=== PATIENT | female | born 1940 | race American Indian/Alaskan Native ===

== ENCOUNTER 2018-12-27 14:10 | Emergency (ER) | payer MEDICAID, MEDICARE ==
--- NOTE | 2018-12-27 14:41 | Emergency Department Report ---
Blank Doc - Documentation Documentation: This is a 78-year-old female that presents with dry cough. Patient stated seen her PCP and was given Prednisone x5 days. Stated was taking Lisinopril and stopped it last month. Stated has acid reflex as well. Exam: normal exam. no facial swelling. no rash. No angioedema. This initial assessment diagnostic orders/clinical plan/treatment(s) is/are subject to change based on patient's health status, clinical progression and re- assessment by fellow clinical providers in the ED. Further treatment and workup at subsequent clinical providers discretion. Patient/guardians urged not to elope from ED s their condition may be serious if not clinically assessed and managed. Initial orders include: 1-Patient sent to [facility] for further evaluation and treatment 2- CXR
[2018-12-27 14:43] VITALS: BP 149/68
--- NOTE | 2018-12-27 15:16 | XRay Report ---
ROUTINE CHEST, TWO VIEWS: HISTORY: chest pain. The trachea, heart, mediastinal contour, lung olguin and bony thorax are unremarkable. Linear scarring in the right upper lobe is noted. IMPRESSION: No acute cardiopulmonary process.
--- NOTE | 2018-12-27 18:01 | Emergency Department Report ---
Minor Respiratory - HPI Chief Complaint: Allergic Reaction Stated Complaint: LUPUS/COUGHING Time Seen by Provider: 12/27/18 14:38 Duration: 3 weeks Severity: mild Minor Respiratory: Yes Able to Tolerate Fluids, Yes Cough, No Rhinorrhea, No Sore Throat, No Ear Pain, No Sick Contacts, No Hemoptysis, No Chest Pain, No Shortness of Breath, No Fever Other History: This is a 78-year-old -[place] female presents with a cough for the past 3 weeks. Past medical history of diabetes, depression, hyperlipidemia, asthma, GERD, hypertension, lupus, and glaucoma. Patient states initially she was taken off of lisinopril for cough side effects and started on losartan. She is currently seeing a care provider Dr. Jocelynn Verdugo. Patient states she was told her cough is related to GERD, asthma, and acid reflux. She thought symptoms would improve after starting losartan but continues to cough. Patient states cough is worse after eating. She also complains of a burning sensation in stomach. Patient states she has taken Zantac and Nexium with no improvement of symptoms. She is requesting better medication and a new primary care provider. She states her insurance company provided her current primary care provider. She denies fever, chest pain, shortness of breath, wheeze then, nausea or vomiting. ED Review of Systems ROS: Stated complaint: LUPUS/COUGHING Other details as noted in HPI Constitutional: denies: chills, fever Respiratory: cough. denies: shortness of breath, wheezing Cardiovascular: denies: chest pain, palpitations Endocrine: no symptoms reported Gastrointestinal: denies: abdominal pain, nausea, diarrhea Neurological: denies: headache, weakness, paresthesias Psychiatric: denies: anxiety, depression ED Past Medical Hx - Past Medical History Hx Hypertension: Yes Hx Diabetes: Yes Hx GERD: Yes Hx Asthma: Yes Additional medical history: Lupus, hiatal hernia - Surgical History Hx Appendectomy: Yes Additional Surgical History: spinal fusion, cataract, tonsillectomy - Social History Smoking Status: Never Smoker Substance Use Type: None - Medications Home Medications: Home Medications Medication Instructions Recorded Confirmed Last Taken Type Pantoprazole [Protonix TAB] 40 mg PO QDAY #30 tablet 12/27/18 Unknown Rx Minor Respiratory Exam - Exam General: Vital signs noted. No distress. Alert and acting appropriately. HEENT: Yes Moist Mucous Membranes, No Pharyngeal Erythema, No Pharyngeal Exudates, No Rhinorrhea, No Conjuctival Injection, No Frontal Tenderness, No Maxillary Tenderness Ear: Neither TM Bulge, Neither TM Erythema, Neither EAC Pain, Neither EAC Discharge Neck: Yes Supple, No Adenopathy Lungs: Yes Good Air Exchange, No Wheezes, No Ronchi, No Stridor, No Cough, No Labored Respirations, No Retractions, No Use of Accessory Muscles, No Other Abnormal Lung Sounds Heart: Yes Regular, No Murmur Abdomen: Yes Normal Bowel Sounds, No Tenderness, No Peritoneal Signs Skin: No Rash, No Edema Neurologic: Alert and oriented, no deficits. Musculoskeletal: Unremarkable. ED Course Vital Signs 12/27/18 14:39 Temperature 97.7 F Pulse Rate 90 Respiratory 16 Rate Blood Pressure 149/68 O2 Sat by Pulse 98 Oximetry ED Medical Decision Making - Radiology Data Radiology results: report reviewed ROUTINE CHEST, TWO VIEWS: HISTORY: chest pain. The trachea, heart, mediastinal contour, lung olguin and bony thorax are unremarkable. Linear scarring in the right upper lobe is noted. IMPRESSION: No acute cardiopulmonary process. - Medical Decision Making This is a 78 y.o. female that presents with a cough for 2-3 weeks. Past medical history of diabetes, depression, hyperlipidemia, asthma, GERD, hypertension, lupus, glaucoma, and osteoporosis. Patient is stable and was examined by me. Vitals stable. Obtained chest x-ray. Chest x-ray dictated by radiologist report reviewed by myself. No acute cardiopulmonary process. Symptoms are most likely related to GERD. Start pantoprazole 40 mg po daily x 30 days. Instructed to continue taking losartan. Discussed plan with patient and agreed to plan. No further questions noted by the patient. Discharged home in stable condition. 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 Critical care attestation.: If time is entered above; I have spent that time in minutes in the direct care of this critically ill patient, excluding procedure time. ED Disposition Clinical Impression: Cough in adult GERD (gastroesophageal reflux disease) Qualifiers: Esophagitis presence: without esophagitis Qualified Code(s): K21.9 - Gastro- esophageal reflux disease without esophagitis Disposition: TO HOME OR SELFCARE Is pt being admited?: No Does the pt Need Aspirin: No Condition: Stable Instructions: Gastroesophageal Reflux Disease (ED) Additional Instructions: Weight reduction and elevation of the head of the bed may be useful. Follow up with gastroenterology and primary care provider in the next week. Prescriptions: Pantoprazole [Protonix TAB] 40 mg PO QDAY #30 tablet Referrals: MALOU VERDUGO MD [Primary Care Provider] - 3-5 Days SHOLA BRUNO MD [Referring] - 3-5 Days VAIBHAV LUNA MD [Staff Physician] - 3-5 Days Time of Disposition: 18:08
== END 2018-12-27 18:17 | disposition home or self-care (01) ==
LOC: ED 14:10
DX: R05 Cough (principal); K21.9 Gastro-esophageal reflux disease without esophagitis; I10 Essential (primary) hypertension; E11.9 Type 2 diabetes mellitus without complications; Z90.49 Acquired absence of other specified parts of digestive tract; Z90.89 Acquired absence of other organs; Z88.6 Allergy status to analgesic agent; Z91.013 Allergy to seafood
CPT/HCPCS: 71046; 99283